=== PATIENT | male | born 1995 | race Caucasian/White ===

== ENCOUNTER 2024-02-21 21:47 | Emergency (ER) | payer OTHER ==
[~2024-02-21] VITALS: Ht 177.8 cm; Wt 68.0 kg
[2024-02-21] MEDS ORDERED: Amoxicillin/Clavulanate K 875 MG Tab PO ONE (23:45)
[2024-02-22] MEDS ORDERED: AMOCLA875 PO (01:40)
== END 2024-02-22 01:52 | disposition home or self-care (01) ==
LOC: ER 21:47
DX: S66.322A Laceration of extensor muscle, fascia and tendon of right middle finger at wrist and hand level, initial encounter (principal); S61.012A Laceration without foreign body of left thumb without damage to nail, initial encounter; W27.0XXA Contact with workbench tool, initial encounter
CPT/HCPCS: 12004; 73140; 99283-25; A9270